=== PATIENT | male | born 1950 | race Caucasian/White ===

== ENCOUNTER 2020-09-27 08:20 | Day surgery (SDC) | payer OTHER, MEDICARE ==
[~2020-09-27 08:20] MED LIST: Lactated Ringers 1,000 ML IV SCH; Lidocaine 1%/Sod Bicarbonate in NS 8.4% 1 ML Syringe IDERM PRN; Sodium Chloride 0.9% 10 ML Syringe FLUSH PRN
--- NOTE | 2020-09-27 09:17 | PCM.PREANE ---
Preanesthetic Assessment - Procedure Proposed Procedure: Screening colonsocpy - Anesthesia/Transfusion/Family Hx Anesthesia History: Prior Anesthesia Without Reaction Family History of Anesthesia Reaction: No - Review of Systems General: No Symptoms Pulmonary: No Symptoms (TREASURE with CPAP) Cardiovascular: No Symptoms (Hypertension), Other (PVCs noted on EKG and ECHO, denies symptoms of PVCs) Gastrointestinal: No Symptoms Neurological: No Symptoms Other: Reports: Diabetes (Type II, Blood glucose 154 mg/dl) - Physical Assessment NPO Status Date: 09/27/20 NPO Status Time: 04:00 Weight: 130 kg ASA Class: 3 Mental Status: Alert & Oriented x3 Airway Class: Mallampati = 3 Dentition: Reports: Caries Thyro-Mental Finger Breadths: 3 Mouth Opening Finger Breadths: 3 ROM/Head Extension: Full Lungs: Clear to Auscultation, Normal Respiratory Effort Cardiovascular: Regular Rate, Regular Rhythm - Lab Values: Laboratory Last Values POC Glucose 154 mg/dL (83-110) H 09/27/20 08:32 - Allergies Allergies/Adverse Reactions: Allergies Allergy/AdvReac Type Severity Reaction Status Date / Time cephalexin [From Keflex] Allergy Rash Verified 09/27/20 09:01 milk Allergy bloating Verified 09/27/20 09:01 - Acknowledgements Anesthesia Type Planned: MAC Pt an Appropriate Candidate for the Planned Anesthesia: Yes Alternatives and Risks of Anesthesia Discussed w Pt/Guardian: Yes Pt/Guardian Understands and Agrees with Anesthesia Plan: Yes PreAnesthesia Questionnaire HEENT History: Reports: Allergic Rhinitis Cardiovascular History: Reports: Other (See Below) Other Cardiovascular History: PVCs Respiratory History: Reports: Sleep Apnea Genitourinary History: Reports: Other (See Below) Other Genitourinary History: burning with urination INDI[place] NAN[place] History: Reports: None Musculoskeletal History: Reports: None Neurological History: Reports: None Psychiatric History: Reports: None Endocrine/Metabolic History: Reports: Diabetes, Type II Hematologic History: Reports: None Immunologic History: Reports: None Oncologic (Cancer) History: Reports: None Dermatologic History: Reports: None - Infectious Disease History Infectious Disease History: Reports: None - Past Surgical History Head Surgeries/Procedures: Reports: None HEENT Surgical History: Reports: Cataract Surgery, Other (See Below) Other HEENT Surgeries/Procedures: torn retina;cochlear implant Cardiovascular Surgical History: Reports: None Respiratory Surgical History: Reports: None GI Surgical History: Reports: Colonoscopy, Hernia, Inguinal, Hernia Repair/Other Male Surgical History: Reports: Vasectomy Endocrine Surgical History: Reports: None Neurological Surgical History: Reports: None Musculoskeletal Surgical History: Reports: Knee Replacement, Shoulder Surgery, Other (See Below) Oncologic Surgical History: Reports: None Dermatological Surgical History: Reports: None - SUBSTANCE USE Tobacco Use Status *Q: Former Tobacco User Recreational Drug Use History: No - HOME MEDS Home Medications: Home Meds Lutein/Minerals/Vit A,C & E [Ocuvite] 1 tab PO DAILY 04/23/16 [History] Terazosin HCl [Terazosin] 2 mg PO BEDTIME 04/23/16 [History] Cholecalciferol (Vitamin D3) [Vitamin D3] 1,250 mcg PO MO 09/26/20 [History] Ferrous Sulfate [Iron] 650 mg PO DAILY 09/26/20 [History] Hydrocortisone [Hydrocortisone 2.5% Crm] 1 dose TOP BID PRN 09/26/20 [History] Rosuvastatin [Crestor] 5 mg PO DAILY 09/26/20 [History] Vitamin B Complex [B Complex] 1 tab PO DAILY 09/26/20 [History] metFORMIN HCl [Metformin HCl] 1,000 mg PO QPM 09/26/20 [History] metFORMIN HCl [Metformin HCl] 500 mg PO QAM 09/26/20 [History] - CURRENT (IN HOUSE) MEDS Current Meds: Current Medications Lactated Ringer's (Ringers, Lactated) 1,000 mls @ 125 mls/hr IV ASDIRECTED DELORES Stop: 09/27/20 23:00 Last Admin: 09/27/20 08:57 Dose: 125 mls/hr Documented by: Lidocaine/Sodium Bicarbonate (Buffered Lidocaine 1% In Ns 8.4%) 0.25 ml IDERM ONETIME PRN PRN Reason: Prior to IV Start Stop: 09/27/20 18:00 Sodium Chloride (Saline Flush) 10 ml FLUSH ASDIRECTED PRN PRN Reason: Keep Vein Open Stop: 09/27/20 18:00
[2020-09-27] MEDS ORDERED: Propofol 200 MG/20 ML SDV ONE ×3 (09:29→09:57)
[2020-09-27] MEDS ORDERED: fentaNYL 100 MCG/2 ML SDV ONE (09:29)
[2020-09-27] MEDS ORDERED: Lidocaine 1% 4 ML ONE (09:30)
--- NOTE | 2020-09-27 10:17 | PCM48HPAN ---
Post Anesthesia Note - EVALUATION WITHIN 48HRS OF ANESTHETIC Vital Signs in Normal Range: Yes Patient Participated in Evaluation: Yes Respiratory Function Stable: Yes Airway Patent: Yes Cardiovascular Function Stable: Yes Hydration Status Stable: Yes Pain Control Satisfactory: Yes Nausea and Vomiting Control Satisfactory: Yes Mental Status Recovered: Yes Vital Signs: Last Vital Signs Temp 36.1 C 09/27/20 08:30 Pulse 74 09/27/20 08:30 Resp 18 09/27/20 08:30 BP 155/86 H 09/27/20 08:30 Pulse Ox 95 09/27/20 08:30 - COMMENTS/OBSERVATIONS Free Text/Narrative:: no anesthesia complications noted
[2020-09-27 11:11] VITALS: BP 119/68; PULSE 59
--- NOTE | 2020-09-27 11:49 | PCM.PRNOTE ---
- Free Text/Narrative Note: Date: 09/27/2020 Procedure: screening colonoscopy Endoscopist: Moose Hayes MD Relevant history: adenomatous polyps identified and removed on screening colonoscopy in 2011 Findings: Fair prep. Diverticular disease throughout the colon, most concentrated in the sigmoid colon. Single sigmoid colon small polyp identified and removed. Minor internal hemorrhoidal disease. Detailed Report: The patient was taken to the endoscopy suite and placed in left lateral decubitus position. Timeout was performed, and monitored anesthesia care was initiated. Visual inspection of the anus was unremarkable. Digital rectal exam was unremarkable, the prostate felt normal. The colonoscope was inserted and advanced all the way to the cecum. This was challenging due to body habitus and scope looping, and the patient had to be positioned supine in order to successfully reach the cecum. The appendiceal orifice was visualized. The ileocecal valve was visualized. Prep was fair, and there was a significant amount of bubbling of the prep especially in the proximal colon. The scope was slowly withdrawn and mucosal surfaces carefully inspected. There was diverticular disease throughout the colon, most notably in the sigmoid colon. A single subcentimeter sessile polyp was identified in the sigmoid colon approxi mately 25 cm from the anal verge. This was removed in its entirety with cold forceps. On retroflexion within the rectum, minor internal hemorrhoidal disease was appreciated. No other abnormalities were noted. Air was suctioned prior to withdrawal of the scope. The patient tolerated the procedure well.
== END 2020-09-27 11:16 | disposition home or self-care (01) ==
LOC: JD.SDS 08:20
PROVIDERS: ATTEND Surgery
DX: Z12.11 Encounter for screening for malignant neoplasm of colon (principal); K57.30 Diverticulosis of large intestine without perforation or abscess without bleeding; K64.8 Other hemorrhoids; K63.5 Polyp of colon; E11.9 Type 2 diabetes mellitus without complications; I10 Essential (primary) hypertension; G47.30 Sleep apnea, unspecified; Z88.8 Allergy status to other drugs, medicaments and biological substances; Z79.899 Other long term (current) drug therapy; Z79.84 Long term (current) use of oral hypoglycemic drugs; Z98.890 Other specified postprocedural states; Z87.891 Personal history of nicotine dependence
CPT/HCPCS: 45380; 82962; J2704; J3010; J7120; 00812; 88305

== ENCOUNTER 2023-02-26 10:00 | Emergency (ER) | payer MEDICARE, OTHER ==
[2023-02-26] MEDS ORDERED: Sodium Chloride 0.9% 10 ML Syringe FLUSH PRN (10:51)
[2023-02-26 11:51] LABS: BASOPHILS ABSOLUTE AUTO 0.04 K/mm3 (0.01-0.08); BASOPHILS PERCENT AUTO 0.8 % (0.1-1.2); EOSINOPHILS ABSOLUTE AUTO 0.31 K/mm3 (0.04-0.54); EOSINOPHILS PERCENT AUTO 6.3 (0.8-7.0); HEMATOCRIT 36.3 % (40.1-51.0); HEMOGLOBIN 11.8 gm/dl (13.7-17.5); IMMATURE GRAN ABSOLUTE AUTO 0.01 K/mm3 (0.00-0.10); IMMATURE GRAN PERCENT AUTO 0.2 % (<=1.0); LYMPHOCYTES ABSOLUTE AUTO 0.97 K/mm3 (1.32-3.57); LYMPHOCYTES PERCENT AUTO 19.6 % (21.8-53.1); MEAN CORPUSCULAR HEMOGLOBIN 28.2 pg (25.7-32.2); MEAN CORPUSCULAR HGB CONC 32.5 g/dl (32.2-35.5); MEAN CORPUSCULAR VOLUME 86.6 fl (79.0-92.2); MEAN PLATELET VOLUME 10.6 fl (9.4-12.3); MONOCYTES ABSOLUTE AUTO 0.46 K/mm3 (0.30-0.82); MONOCYTES PERCENT AUTO 9.3 % (5.3-12.2); NEUTROPHILS ABSOLUTE AUTO 3.15 K/mm3 (1.78-5.38); NEUTROPHILS PERCENT AUTO 63.8 % (34.0-67.9); PLATELET COUNT,PLT 134 K/mm3 (163-337); RED BLOOD CELL COUNT 4.19 M/mm3 (4.63-6.08); WHITE BLOOD CELL COUNT,WBC 4.94 K/mm3 (4.23-9.07)
[2023-02-26 12:13] LABS: A/G RATIO 1.2 (1-2); ALANINE AMINOTRANSFERASE,ALT 20 U/L (16-63); ALBUMIN 3.8 g/dl (3.4-5.0); ALKALINE PHOSPHATASE 79 U/L (46-116); ANION GAP 9.3 (5-15); ASPARTATE AMNIOTRANSFERASE,AST 15 U/L (15-37); BILIRUBIN TOTAL 1.9 mg/dL (0.2-1.0); BLOOD UREA NITROGEN,BUN 13 mg/dL (7-18); BUN/CREATININE RATIO 18.6 (14-18); C-REACTIVE PROTEIN <0.2 mg/dL (<1.0); CALCIUM 9.2 mg/dL (8.5-10.1); CARBON DIOXIDE,CO2 28 mEq/L (21-32); CHLORIDE,CL 104 mEq/L (98-107); CREATININE 0.7 mg/dL (0.7-1.3); EST CRCL DRUG DOSING (CG) 90.93 mL/min; ESTIMATED GFR 97 mL/min (>60); GLUCOSE RANDOM 167 mg/dL (70-99); POTASSIUM,K 4.3 mEq/L (3.5-5.1); SODIUM,NA 137 mEq/L (136-145); TROPONIN I HIGH SENSITIVITY 9 pg/mL (<=76)
[2023-02-26 19:12] VITALS: BP 145/79; PULSE 71
== END 2023-02-26 15:00 | disposition home or self-care (01) ==
LOC: JD.ED 10:00
DX: M48.02 Spinal stenosis, cervical region (principal); M47.812 Spondylosis without myelopathy or radiculopathy, cervical region; E11.9 Type 2 diabetes mellitus without complications; Z88.1 Allergy status to other antibiotic agents; Z91.011 Allergy to milk products; Z79.84 Long term (current) use of oral hypoglycemic drugs
CPT/HCPCS: 36415; 70450; 71045; 72125; 80053; 84484; 85025; 85652; 86140; 93005; 99284; J3490; 93010

== ENCOUNTER 2023-03-23 10:38 | Inpatient (IN) | payer MEDICARE, OTHER ==
[2023-03-23 11:44] LABS: BASOPHILS ABSOLUTE AUTO 0.02 K/mm3 (0.01-0.08); BASOPHILS PERCENT AUTO 0.3 % (0.1-1.2); EOSINOPHILS ABSOLUTE AUTO 0.18 K/mm3 (0.04-0.54); EOSINOPHILS PERCENT AUTO 2.7 (0.8-7.0); HEMATOCRIT 36.1 % (40.1-51.0); IMMATURE GRAN ABSOLUTE AUTO 0.01 K/mm3 (0.00-0.10); IMMATURE GRAN PERCENT AUTO 0.1 % (<=1.0); LYMPHOCYTES ABSOLUTE AUTO 0.96 K/mm3 (1.32-3.57); LYMPHOCYTES PERCENT AUTO 14.4 % (21.8-53.1); MEAN CORPUSCULAR HEMOGLOBIN 28.8 pg (25.7-32.2); MEAN CORPUSCULAR HGB CONC 33.2 g/dl (32.2-35.5); MEAN CORPUSCULAR VOLUME 86.6 fl (79.0-92.2); MEAN PLATELET VOLUME 10.1 fl (9.4-12.3); MONOCYTES ABSOLUTE AUTO 0.74 K/mm3 (0.30-0.82); MONOCYTES PERCENT AUTO 11.1 % (5.3-12.2); NEUTROPHILS ABSOLUTE AUTO 4.77 K/mm3 (1.78-5.38); NEUTROPHILS PERCENT AUTO 71.4 % (34.0-67.9); PLATELET COUNT,PLT 128 K/mm3 (163-337); RED BLOOD CELL COUNT 4.17 M/mm3 (4.63-6.08); WHITE BLOOD CELL COUNT,WBC 6.68 K/mm3 (4.23-9.07)
[2023-03-23 12:11] LABS: A/G RATIO 0.9 (1-2); ALBUMIN 3.3 g/dl (3.4-5.0); ANION GAP 13.7 (5-15); BILIRUBIN TOTAL 1.9 mg/dL (0.2-1.0); BUN/CREATININE RATIO 11.1 (14-18); C-REACTIVE PROTEIN 3.8 mg/dL (<1.0); CALCIUM 8.9 mg/dL (8.5-10.1); CREATININE 0.9 mg/dL (0.7-1.3); EST CRCL DRUG DOSING (CG) 70.72 mL/min; POTASSIUM,K 3.7 mEq/L (3.5-5.1)
[2023-03-23 12:25] LABS: APPEARANCE,URINE CLEAR (Clear); BILIRUBIN,URINE NEGATIVE (Negative); COLOR,URINE YELLOW (Yellow); GLUCOSE,URINE NEGATIVE (Negative); KETONES,URINE NEGATIVE (Negative); LEUKOCYTE ESTERASE,URINE NEGATIVE (Negative); NITRITE,URINE NEGATIVE (Negative); OCCULT BLOOD,URINE NEGATIVE (Negative); PROTEIN,URINE NEGATIVE (Negative); UROBILINOGEN,URINE 0.2 (0.2-1.0)
[2023-03-23 12:48] LABS: EPITHELIAL CELLS,URINE NOT SEEN /hpf (0-5); RBC,URINE 0-5 /hpf (0-5); WBC,URINE NOT SEEN /hpf (0-5)
[2023-03-23 12:49] LABS: BACTERIA,URINE NOT SEEN /hpf (FEW); MUCUS,URINE RARE /hpf (FEW)
[2023-03-23] MEDS ORDERED: Heparin Sodium 5,000 Units/ML Vial SUBCUT SCH (14:00)
[2023-03-23] MEDS ORDERED: Acetaminophen/HYDROcodone 325-5 MG Tab PO ONE (14:16)
[2023-03-23] MEDS ORDERED: Ondansetron 4 MG Tab.DIS PO PRN (14:29)
[2023-03-23] MEDS ORDERED: Sodium Chloride 0.9% 10 ML Syringe FLUSH PRN (14:29)
[2023-03-23] MEDS ORDERED: Morphine 2 MG/ML SYRINGE IVPUSH PRN (14:29)
[2023-03-23] MEDS ORDERED: Docusate Sodium 100 MG Cap PO PRN (14:29)
[2023-03-23] MEDS ORDERED: Temazepam 7.5 MG Cap PO PRN (14:29)
[2023-03-23] MEDS ORDERED: LORazepam 0.5 MG Tab PO PRN (16:09)
[2023-03-23] MEDS: oxyCODONE 5 MG Tab PO PRN ×2 (16:29→21:01)
[2023-03-23] MEDS: metFORMIN 500 MG Tab PO SCH (17:42)
[2023-03-23] MEDS: Cyclobenzaprine 10 MG Tab PO SCH (21:00)
[2023-03-23] MEDS: Gabapentin 100 MG Cap PO SCH (21:00)
[2023-03-23] MEDS: Sodium Chloride 0.9% 10 ML Syringe FLUSH SCH (21:01)
[2023-03-24] MEDS: oxyCODONE 5 MG Tab PO PRN ×4 (01:55→19:59)
[2023-03-24 05:16] LABS: BASOPHILS ABSOLUTE AUTO 0.02 K/mm3 (0.01-0.08); BASOPHILS PERCENT AUTO 0.4 % (0.1-1.2); EOSINOPHILS ABSOLUTE AUTO 0.18 K/mm3 (0.04-0.54); EOSINOPHILS PERCENT AUTO 3.3 (0.8-7.0); HEMOGLOBIN 11.6 gm/dl (13.7-17.5); LYMPHOCYTES ABSOLUTE AUTO 1.04 K/mm3 (1.32-3.57); LYMPHOCYTES PERCENT AUTO 19.1 % (21.8-53.1); MEAN CORPUSCULAR HEMOGLOBIN 28.5 pg (25.7-32.2); MEAN CORPUSCULAR HGB CONC 33.1 g/dl (32.2-35.5); MEAN PLATELET VOLUME 10.3 fl (9.4-12.3); MONOCYTES ABSOLUTE AUTO 0.62 K/mm3 (0.30-0.82); MONOCYTES PERCENT AUTO 11.4 % (5.3-12.2); NEUTROPHILS ABSOLUTE AUTO 3.59 K/mm3 (1.78-5.38); NEUTROPHILS PERCENT AUTO 65.8 % (34.0-67.9); PLATELET COUNT,PLT 123 K/mm3 (163-337); RED BLOOD CELL COUNT 4.07 M/mm3 (4.63-6.08); WHITE BLOOD CELL COUNT,WBC 5.45 K/mm3 (4.23-9.07)
[2023-03-24 05:35] LABS: A/G RATIO 0.8 (1-2); ALBUMIN 3.1 g/dl (3.4-5.0); ANION GAP 11.9 (5-15); BILIRUBIN TOTAL 2.1 mg/dL (0.2-1.0); BUN/CREATININE RATIO 12.5 (14-18); CALCIUM 8.9 mg/dL (8.5-10.1); CREATININE 0.8 mg/dL (0.7-1.3); EST CRCL DRUG DOSING (CG) 79.56 mL/min; POTASSIUM,K 3.9 mEq/L (3.5-5.1); PROTEIN TOTAL,TP 6.8 g/dl (6.4-8.2)
[2023-03-24] MEDS: Insulin Regular, Human 100 Units/ML 3 ML Vial SUBCUT SCH ×3 (08:10→17:00)
[2023-03-24] MEDS: Gabapentin 100 MG Cap PO SCH ×3 (08:11→20:00)
[2023-03-24] MEDS: metFORMIN 500 MG Tab PO SCH ×2 (08:11→17:05)
[2023-03-24] MEDS: Acetaminophen 325 MG Tab PO PRN ×2 (08:21→13:55)
[2023-03-24] MEDS: Sodium Chloride 0.9% 10 ML Syringe FLUSH SCH ×2 (10:32→20:00)
[2023-03-24] MEDS ORDERED: Piperacillin/Tazobactam 4.5 GM in Sodium Chloride 0.9% 100 ML IV ONE (17:00)
[2023-03-24] MEDS: Cyclobenzaprine 10 MG Tab PO SCH ×2 (19:58→22:31)
[2023-03-24] MEDS: Piperacillin/Tazobactam 4.5 GM in Sodium Chloride 0.9% 100 ML IV SCH (23:32)
[2023-03-25] MEDS: oxyCODONE 5 MG Tab PO PRN ×3 (03:30→14:36)
[2023-03-25 05:21] LABS: BASOPHILS ABSOLUTE AUTO 0.02 K/mm3 (0.01-0.08); BASOPHILS PERCENT AUTO 0.3 % (0.1-1.2); EOSINOPHILS ABSOLUTE AUTO 0.17 K/mm3 (0.04-0.54); EOSINOPHILS PERCENT AUTO 2.8 (0.8-7.0); HEMATOCRIT 35.6 % (40.1-51.0); HEMOGLOBIN 11.9 gm/dl (13.7-17.5); LYMPHOCYTES ABSOLUTE AUTO 0.69 K/mm3 (1.32-3.57); LYMPHOCYTES PERCENT AUTO 11.2 % (21.8-53.1); MEAN CORPUSCULAR HEMOGLOBIN 28.7 pg (25.7-32.2); MEAN CORPUSCULAR HGB CONC 33.4 g/dl (32.2-35.5); MEAN CORPUSCULAR VOLUME 85.8 fl (79.0-92.2); MEAN PLATELET VOLUME 10.5 fl (9.4-12.3); MONOCYTES PERCENT AUTO 11.3 % (5.3-12.2); NEUTROPHILS PERCENT AUTO 74.4 % (34.0-67.9); PLATELET COUNT,PLT 134 K/mm3 (163-337); RED BLOOD CELL COUNT 4.15 M/mm3 (4.63-6.08); WHITE BLOOD CELL COUNT,WBC 6.18 K/mm3 (4.23-9.07)
[2023-03-25 06:00] LABS: A/G RATIO 0.8 (1-2); ALBUMIN 3.1 g/dl (3.4-5.0); ANION GAP 13.8 (5-15); BILIRUBIN TOTAL 2.5 mg/dL (0.2-1.0); BUN/CREATININE RATIO 17.5 (14-18); CALCIUM 9.3 mg/dL (8.5-10.1); CREATININE 0.8 mg/dL (0.7-1.3); EST CRCL DRUG DOSING (CG) 79.56 mL/min; POTASSIUM,K 3.8 mEq/L (3.5-5.1); PROTEIN TOTAL,TP 7.1 g/dl (6.4-8.2)
[2023-03-25] MEDS: Piperacillin/Tazobactam 4.5 GM in Sodium Chloride 0.9% 100 ML IV SCH ×2 (06:16→14:38)
[2023-03-25] MEDS: Insulin Regular, Human 100 Units/ML 3 ML Vial SUBCUT SCH ×2 (07:55→11:34)
[2023-03-25] MEDS: metFORMIN 500 MG Tab PO SCH (07:56)
[2023-03-25] MEDS: Gabapentin 100 MG Cap PO SCH (08:01)
[2023-03-25] MEDS ORDERED: Dexamethasone 4 MG Tab PO SCH (11:00)
[2023-03-25] MEDS: Sodium Chloride 0.9% 10 ML Syringe FLUSH SCH (11:28)
[2023-03-25] MEDS ORDERED: Gabapentin 300 MG Cap PO ONE (11:30)
[2023-03-25] MEDS ORDERED: Sennosides/Docusate Sodium 50-8.6 MG Tab PO SCH (11:30)
[2023-03-25 12:20] VITALS: BP 148/68; PULSE 80
[2023-03-25] MEDS ORDERED: Gabapentin 100 MG Cap PO SCH (15:00)
[2023-03-25] MEDS ORDERED: Pantoprazole 40 MG Tab.CR PO SCH (15:45)
[2023-03-26] MEDS ORDERED: Gabapentin 300 MG Cap PO SCH (09:00)
== END 2023-03-25 16:40 | DRG 552 ==
LOC: JD.ED 10:38 → JD.MS 13:49
PROVIDERS: ADMIT Internal Medicine; ATTEND Internal Medicine
DX: M48.02 Spinal stenosis, cervical region (principal); M47.812 Spondylosis without myelopathy or radiculopathy, cervical region; M79.672 Pain in left foot; E11.9 Type 2 diabetes mellitus without complications; G47.30 Sleep apnea, unspecified; R50.9 Fever, unspecified; J30.9 Allergic rhinitis, unspecified; R30.9 Painful micturition, unspecified; Z96.652 Presence of left artificial knee joint; R29.6 Repeated falls; W19.XXXA Unspecified fall, initial encounter; Y92.009 Unspecified place in unspecified non-institutional (private) residence as the place of occurrence of the external cause; Z96.21 Cochlear implant status; Z79.84 Long term (current) use of oral hypoglycemic drugs; Z79.899 Other long term (current) drug therapy; Z91.81 History of falling; Z98.49 Cataract extraction status, unspecified eye; Z88.1 Allergy status to other antibiotic agents; Z91.011 Allergy to milk products; Z98.52 Vasectomy status
CPT/HCPCS: 36415; 70450; 70450-26; 73630-26-LT; 73630-LT; 80053; 81001; 82947; 85025; 86140; 87040; 97162-GP; 97165-GO; 97530-GO; 97530-GP; 99285; A9270-GY; J1815-GY; J2543; J3490; J8540

== ENCOUNTER 2023-05-20 14:34 | Emergency (ER) | payer MEDICARE, OTHER ==
[2023-05-20 15:27] LABS: HEMOGLOBIN 10.5 gm/dl (14.0-18.0); IMMATURE GRAN ABSOLUTE AUTO 0.04 K/mm3 (0.00-0.05); IMMATURE GRAN PERCENT AUTO 0.6 % (0.0-0.4); LYMPHOCYTES ABSOLUTE AUTO 0.6 K/mm3 (1.0-4.8); LYMPHOCYTES PERCENT AUTO 8.6 % (24.0-44.0); MEAN CORPUSCULAR HEMOGLOBIN 29.5 pg (28.0-32.0); MEAN CORPUSCULAR HGB CONC 33.9 g/dl (32.0-36.0); MEAN CORPUSCULAR VOLUME 87.1 fl (83.0-99.0); MEAN PLATELET VOLUME 9.3 fl (9.4-12.4); MONOCYTES ABSOLUTE AUTO 0.4 K/mm3 (0.0-0.8); MONOCYTES PERCENT AUTO 6.2 % (0.0-8.0); NEUTROPHILS ABSOLUTE AUTO 5.4 K/mm3 (1.8-7.7); NEUTROPHILS PERCENT AUTO 84.6 % (41.0-71.0); PLATELET COUNT,PLT 160 K/mm3 (150-400); RED BLOOD CELL COUNT 3.56 M/mm3 (4.52-5.90); WHITE BLOOD CELL COUNT,WBC 6.41 K/mm3 (3.9-11.3)
[2023-05-20 15:53] LABS: A/G RATIO 0.9 (1-2); ALBUMIN 3.1 g/dl (3.4-5.0); ANION GAP 13.3 (5-15); BILIRUBIN TOTAL 1.2 mg/dL (0.2-1.0); BUN/CREATININE RATIO 12.5 (14-18); C-REACTIVE PROTEIN 0.9 mg/dL (<1.0); CALCIUM 8.9 mg/dL (8.5-10.1); CREATININE 1.2 mg/dL (0.7-1.3); EST CRCL DRUG DOSING (CG) 53.04 mL/min; POTASSIUM,K 4.3 mEq/L (3.5-5.1); PROTEIN TOTAL,TP 6.5 g/dl (6.4-8.2)
[2023-05-20 16:45] VITALS: BP 132/81; PULSE 97
== END 2023-05-20 16:35 | disposition home or self-care (01) ==
LOC: JD.ED 14:34
DX: L08.9 Local infection of the skin and subcutaneous tissue, unspecified (principal); E11.9 Type 2 diabetes mellitus without complications; Z88.1 Allergy status to other antibiotic agents; Z91.011 Allergy to milk products
CPT/HCPCS: 36415; 80053; 85025; 86140; 99283

== ENCOUNTER 2024-05-22 15:24 | Emergency (ER) | payer MEDICARE, OTHER ==
[2024-05-22 16:36] LABS: BASOPHILS PERCENT AUTO 0.7 % (0.0-1.0); EOSINOPHILS ABSOLUTE AUTO 0.2 K/mm3 (0.0-0.4); EOSINOPHILS PERCENT AUTO 4.5 % (0.0-6.0); HEMATOCRIT 34.6 % (42.0-52.0); HEMOGLOBIN 11.9 gm/dl (14.0-18.0); IMMATURE GRAN ABSOLUTE AUTO 0.01 K/mm3 (0.00-0.05); IMMATURE GRAN PERCENT AUTO 0.2 % (0.0-0.4); LYMPHOCYTES ABSOLUTE AUTO 1.2 K/mm3 (1.0-4.8); LYMPHOCYTES PERCENT AUTO 30.3 % (24.0-44.0); MEAN CORPUSCULAR HEMOGLOBIN 29.5 pg (28.0-32.0); MEAN CORPUSCULAR HGB CONC 34.4 g/dl (32.0-36.0); MEAN CORPUSCULAR VOLUME 85.9 fl (83.0-99.0); MEAN PLATELET VOLUME 10.7 fl (9.4-12.4); MONOCYTES ABSOLUTE AUTO 0.4 K/mm3 (0.0-0.8); MONOCYTES PERCENT AUTO 9.7 % (0.0-8.0); NEUTROPHILS ABSOLUTE AUTO 2.2 K/mm3 (1.8-7.7); NEUTROPHILS PERCENT AUTO 54.6 % (41.0-71.0); PLATELET COUNT,PLT 119 K/mm3 (150-400); RED BLOOD CELL COUNT 4.03 M/mm3 (4.52-5.90); WHITE BLOOD CELL COUNT,WBC 4.02 K/mm3 (3.9-11.3)
[2024-05-22] MEDS ORDERED: Metoclopramide 10 MG/2 ML SDV IVPUSH ONE (16:54)
[2024-05-22] MEDS ORDERED: diphenhydrAMINE 50 MG/ML SDV IVPUSH ONE (16:54)
[2024-05-22 16:56] LABS: A/G RATIO 1.5 (1-2); ANION GAP 9.8 (5-15); BILIRUBIN TOTAL 2.3 mg/dL (0.2-1.0); BUN/CREATININE RATIO 15.6 (14-18); CALCIUM 9.3 mg/dL (8.5-10.1); CREATININE 0.9 mg/dL (0.7-1.3); EST CRCL DRUG DOSING (CG) 69.67 mL/min; POTASSIUM,K 4.8 mEq/L (3.5-5.1); PROTEIN TOTAL,TP 6.7 g/dl (6.4-8.2)
[2024-05-22] MEDS ORDERED: Sodium Chloride 0.9% 500 ML IV ONE (17:10)
[2024-05-22] MEDS ORDERED: Ketorolac 30 MG/ML SDV IVPUSH ONE (17:10)
[2024-05-22] MEDS: Ketorolac 10 MG Tab PO ONE (17:38)
[2024-05-22] MEDS: diphenhydrAMINE 50 MG Cap PO ONE (17:38)
[2024-05-22] MEDS: Metoclopramide 10 MG Tab PO ONE (17:38)
[2024-05-22 19:47] VITALS: BP 171/84; PULSE 52
== END 2024-05-22 19:11 | disposition home or self-care (01) ==
LOC: JD.ED 15:24
DX: R51.9 Headache, unspecified (principal); E11.9 Type 2 diabetes mellitus without complications; Z88.1 Allergy status to other antibiotic agents; Z91.011 Allergy to milk products; Z79.84 Long term (current) use of oral hypoglycemic drugs; Z79.899 Other long term (current) drug therapy
CPT/HCPCS: 36415; 70450; 80053; 85025; 99284; A9270; Q0163